=== PATIENT | male | born 1950 | race Caucasian/White ===

== ENCOUNTER 2019-06-04 05:32 | Day surgery (SDC) | payer MEDICARE, OTHER, SELFPAY ==
--- NOTE | 2019-06-01 15:53 | HP.PCM_ITS ---
History and Physical Date of Admission: 06/04/19 HISTORY AND PHYSICAL Enrike Hus 1950 REFERRING PHYSICIAN: Alcides Brown DO CHIEF COMPLAINT: Consult HPI: The patient is a 68 year old male with a diagnosis of colorectal cancer with liver metastases and now with pancreatic cancer. Enrike is currently scheduled to undergo chemotherapy and needs vascular access for treatment. The patient denies a prior history of central venous access. The patient has a previous left-sided Port-A-Cath removed in 2012. The patient is being seen by me today at the request of Dr. Brown for my opinion and advice regarding need for Port-A-Cath placement. PAST MEDICAL HISTORY PAST SURGICAL HISTORY CURRENT MEDICATIONS ALLERGIES: Morphine PERSONAL HISTORY: SOCIAL HISTORY FAMILY HISTORY: FAMILY HISTORY REVIEW OF SYMPTOMS: The review of systems data was entered by the nurse and reviewed by me Nursing Notes: Mike Billingsley LPN 05/31/2019 9:35 AM Signed REVIEW OF SYSTEMS: General: The patient denies fatigue, denies weight loss, denies weight gain, denies feeling hot, and denies feelings of cold. Eyes: The patient denies glaucoma, denies eye injury/surgery, does not wear glasses or contacts. Ear/Nose/Throat: The patient denies allergies, denies hayfever, denies ear infections, and denies bloody noses. Cardiovascular: The patient denies chest pain, denies heart disease, NOTES high blood pressure,denies cardiac stent, denies prior heart attack, denies irregular heart beat, denies high cholesterol, denies poor circulation, denies heart failure, other cardiac issues, denies claudication, denies cold feet, denies peripheral arterial stent. Respiratory: The patient denies tuberculosis, denies pneumonia, denies frequent cough, denies pulmonary embolism, denies shortness of breath, and denies coughing up blood. Gastrointestinal: The patient denies difficulty swallowing, NOTES acid reflux, denies ulcers, denies vomiting, denies jaundice/hepatitis, denies gallbladder problems, denies black or tarry stools, denies hemorrhoids, denies bleeding from rectum, denies diverticulitis, denies constipation, denies diarrhea, denies loss of stool control, and NOTES hernias. Kidney/Bladder: The patient denies kidney stones, denies urine infections, and denies bloody urine. Skin: The patient denies a history of skin cancer, denies bleeding/changing moles, and NOTES a history of skin rash. Neurologic: The patient denies a history of epilepsy/convulsions, denies headaches, denies head/spinal injuries, and NOTES stroke/TIA. Psychiatric: The patient denies psychiatric medications, denies depression, and denies voices, denies substance abuse. Endocrine: The patient denies thyroid disorders, denies diabetes, and denies hormonal problems. Hematologic: The patient denies a history of bruising, denies bleeding, and denies anemia, denies blood clots. Infections: The patient denies a history of measles and mumps, denies rheumatic fever, and denies sexually transmitted diseases. Musculoskeletal: The patient denies back pain/injury, NOTES back problems, denies sciatica, denies knee/foot trouble, denies arthritis, or NOTES gout. When was patient's last Mammogram screening? N/A Last Colonoscopy: 2015 Mike Billingsley [facility] PHYSICAL EXAMINATION: General: The patient is 68 year old male, well nourished, well hydrated in no acute distress. The patient is oriented to time, place, and person. VITALS: Blood pressure 110/82, pulse 71, temperature 36.6 ?C (97.8 ?F), temperature source Temporal Artery, height 170.2 cm (5' 7), weight 79 kg (174 lb 3.2 oz), SpO2 98 %. Body mass index is 27.28 kg/m?. HEENT: Normal cephalic, ataumatic, pupils are equally round, sclera are anicteric, mucous membranes are moist, oropharynx is clear. Neck has no masses, asymmetry or lymphadenopathy. Thyroid is unremarkable. Respiratory: Clear to auscultation and percussion. Normal respiratory excursion and pattern. Cardiac: Examination is regular rate and rhythm. Abdominal exam: Soft, nontender, with no palpable masses. No hepatosplenomegaly. No palpable hernias. Rectal exam: exam deferred Extremities: no clubbing, cyanosis or edema. No adenopathy. Other: LABORATORY VALUES: As Noted RADIOLOGIC STUDIES: As Noted Assessment IMPRESSION: Pancreatic cancer, need for IV access PLAN: I plan to perform a right sided port a cath placement. The planned surgical procedure was discussed extensively with the patient. The risks, benefits, anticipated outcomes and possible complications were mentioned. My staff has also explained the procedure in understandable terms and the patient was given the option to take printed material concerning the planned procedure. The patient had the opportunity to ask questions concerning the planned procedure. The patient freely consents to the planned procedure. 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 plan to access the port at the time of surgery. Diagnoses: (C25.2) Malignant neoplasm of tail of pancreas (HCC) (primary encounter diagnosis) Polly Mcdowell PA-C
[2019-06-04 06:15] VITALS: BP 130/84; PULSE 54; RESP 16; TEMP 36.6; O2SAT 98; BMI 26.9
[2019-06-04] MEDS: Bupivacaine Mpf 0.5% 30 ML VIAL (06:47)
--- NOTE | 2019-06-04 07:30 | RAD_ITS ---
STUDY: X-RAY CHEST REASON FOR EXAM: Male, 68 years old. Port insertion TECHNIQUE: 1 Limited C-arm film COMPARISON: None. FINDINGS: Limited intraoperative film of the upper chest was performed as the patient has undergone attempted placement of a left IJ or subclavian central venous catheter. The catheter takes a tortuous course and appears to be within the proximal SVC but this is not confirmed. RAD/O.R. Fluoro for CVP/PICC/PORT IMPRESSION: Limited C-arm film shows attempted placement of a left IJ or subclavian port Electronically Signed: Modesto Mccartney MD at 9:12 EDT , Service support ,
[2019-06-04] MEDS: Cefazolin 2 GM in 0.9% Normal Saline 100 ML IV (07:40)
--- NOTE | 2019-06-04 08:28 | CT_ITS ---
STUDY: CT CHEST WITH CONTRAST REASON FOR EXAM: Male, 68 years old. Chest pain, failed recent left central line access RADIATION DOSAGE (If Supplied By Facility): CTDIvol = ( 16.36 ) mGy, DLP = ( 450.33 ) mGycm TECHNIQUE: Transaxial imaging was performed following intravenous administration of 100 IV Isovue 300. Individualized dose optimization techniques were used for this CT. COMPARISON: Previous chest x-rays. FINDINGS: Lung windows show lungs to be expanded normally. There are chronic interstitial changes in both lung sanderson with dependent atelectasis in the lung bases. There is nonspecific pleural thickening in inferior aspects of the hemithoraces. No organized infiltrate, suspicious noncalcified mass or nodule noted. Soft tissue windows show normal-appearing thyroid gland. There are scattered subcentimeter axillary and mediastinal lymph nodes measuring up to 7 mm in short axis dimension. Contrast noted within both subclavian arteries and the visualized superior vena cava appears narrowed but patent. There are calcified coronary vessels. No pleural or pericardial effusions. Bony structures show degenerative change, Limited cuts through the upper abdomen show postsurgical changes in the right lobe of liver and borderline splenomegaly with multiple calcified granulomata. There is also a suspicious hypoattenuation within the body and tail of the pancreas concerning for a neoplastic process. CT/Chest WITH Contrast IMPRESSION: Though the superior vena cava appears patent along its course is significantly narrowed just prior to its entrance into the right atrium. Suspicious hypoattenuation in the body and tail of the pancreas concerning for neoplastic process. Please correlate with lab results and dedicated CT abdomen and pelvis for further evaluation Chronic interstitial changes in both lung sanderson without an organized infiltrate, suspicious noncalcified mass or nodule. Scattered subcentimeter axillary and mediastinal lymphadenopathy Calcified coronary vessels Electronically Signed: Modesto Mccartney MD at 9:43 EDT , Service support ,
--- NOTE | 2019-06-04 08:31 | OP.PCM_ITS ---
Report of Operation Date of Procedure: 06/04/19 Post-Operative Diagnosis: failed left sided port placement Surgery/Procedure Performed:: failed left Subclavain and IJ port placement Description of Surgical Findings:: left subclavian and left internal jugular central access with inability to advance wire, using ultrasound and fluoroscopy online merchandising manager: None Type of Anesthesia:: Local MAC Anesthesiologist: Ranjit Ramirez - ASA3 Specimen's removed: none Estimated Blood Loss (mL): 50 Fluids Replaced: 500 Description of Procedure: The patient was brought to the operating suite. The left subclavian site was marked in the holding area and the patient concurred this was the planned operative site. Sign was performed verifying patient, site, position, skip antibiotic prophylaxis-2 g of Ancef and DVT prophylaxis with SCDs. Following IV sedation, the left neck and chest were prepped and draped in the usual fashion. Timeout was performed verifying patient, site, position. Local anesthetic was injected and a Seldinger needle was used to access the left subclavian vein without difficulty. Under fluoroscopic control, a guidewire was inserted and advanced through the subclavian vein but would not advance past the SVC into the SVC RA region. multiple attempts with different access points to the subclavian vein were attempted. Next, ultrasound was used to evaluate the left internal jugular vein. The left internal vent jugular vein was able to be accessed. The guidewire was inserted and again would not advance past the SVC into the SVC RA region. at this point, the procedure was aborted. Dressings were applied. The patient was taken recovery room in stable condition. A postprocedure CAT scan with injection of IV contrast through the left venous system demonstrated no pneumothorax and demonstrated was felt to be a stenosis at the junction of the SVC and the RA region.
[2019-06-04 08:35] VITALS: BP 130/84; BP 134/83; PULSE 56; RESP 16; TEMP 36.3; O2SAT 98
[2019-06-04 08:40] VITALS: BP 130/84; BP 140/91; PULSE 57; RESP 16; O2SAT 99
[2019-06-04 08:45] VITALS: BP 130/84; BP 141/76; PULSE 55; RESP 16; O2SAT 97
[2019-06-04 08:50] VITALS: BP 130/84; BP 147/97; PULSE 55; RESP 16; TEMP 36.2; O2SAT 98
[2019-06-04 09:16] LABS: CREATININE FINGERSTICK 0.6 mg/dL (0.70-1.30); EGFR FINGERSTICK > 60.0000 mL/min (>60)
[2019-06-04 10:25] VITALS: BP 130/84
== END 2019-06-04 10:29 | disposition home or self-care (01) ==
LOC: SDC 05:37 → AC 05:39
PROVIDERS: Family Provider Family Medicine; PCP Family Medicine; Referring Provider Surgery; Visit Provider Surgery
PROC: (CPT 35761; principal; 2019-06-04 07:15)
DX: C19 Malignant neoplasm of rectosigmoid junction (principal); C78.7 Secondary malignant neoplasm of liver and intrahepatic bile duct; C78.89 Secondary malignant neoplasm of other digestive organs; K21.9 Gastro-esophageal reflux disease without esophagitis; E78.00 Pure hypercholesterolemia, unspecified; I10 Essential (primary) hypertension; G62.9 Polyneuropathy, unspecified; Z87.891 Personal history of nicotine dependence; Z86.718 Personal history of other venous thrombosis and embolism; Z86.73 Personal history of transient ischemic attack (TIA), and cerebral infarction without residual deficits; Z79.02 Long term (current) use of antithrombotics/antiplatelets; Z79.899 Other long term (current) drug therapy
CPT/HCPCS: 00350; 35761; 71260; 77001; J7120; Q9967; C1788